=== PATIENT | male | born 1995 | race Caucasian/White ===

== ENCOUNTER 2018-11-11 10:49 | Emergency (ER) | payer BC ==
--- NOTE | 2018-11-11 11:22 | EDM.PDOC ---
ED HPI GENERAL MEDICAL PROBLEM - General Chief Complaint: Lower Extremity Injury/Pain Stated Complaint: ER VISIT Time Seen by Provider: 11/11/18 11:00 Source of Information: Reports: Patient, Family History Limitations: Reports: No Limitations - History of Present Illness INITIAL COMMENTS - FREE TEXT/NARRATIVE: Patient comes into the emergency department with complaint of left ankle discomfort. Patient sustained a fall on the ice approximately 4 days ago. Patient states he was walking slipped and fell onto the left ankle denies hitting any other extremity or body part. He does have weakness noted on the left side for he had a stroke prior to . He states it is normally weaker and sometimes can be challenging on uneven or slippery areas. He states he has discomfort sharpshooting pain when he is walking on it. He says it hurts to walk but he can if he has a severe limp. Patient states it has severely bruised over the course of the last 2 days and the swelling has continued to increase. He has taken some Advil at home to help with the pain but has not taken any today. Denies any numbness or tingling sensation of the lower extremity denies any loss of movement. States his range of motion is limited due to the discomfort. Onset: Sudden Improves with: Reports: Cold Therapy, Rest Worsens with: Reports: Movement Context: Reports: Activity Associated Symptoms: Reports: No Other Symptoms Treatments PROVIDER RELATIONS ADVOCATE: Reports: Acetaminophen Left Ankle Pain Score (Numeric/FACES): 5 - Related Data Allergies Allergy/AdvReac Type Severity Reaction Status Date / Time No Known Allergies Allergy Verified 11/11/18 11:03 Home Meds: Home Meds Multivitamin [Multivitamins] 1 each PO DAILY 11/11/18 [History] OXcarbazepine [Trileptal] 750 mg PO BID 11/11/18 [History] Past Medical History Neurological History: Reports: CVA Social & Family History - Tobacco Use Smoking Status *Q: Never Smoker Review of Systems - Review of Systems Review Of Systems: See Below Constitutional: Reports: No Symptoms Eyes: Reports: No Symptoms Ears: Reports: No Symptoms Nose: Reports: No Symptoms Mouth/Throat: Reports: No Symptoms Respiratory: Reports: No Symptoms Cardiovascular: Reports: No Symptoms GI/Abdominal: Reports: No Symptoms Musculoskeletal: Reports: Leg Pain, Foot Pain Skin: Reports: No Symptoms Neurological: Reports: No Symptoms, Weakness (left side r/t stroke prior to ) Psychiatric: Reports: No Symptoms ED EXAM, GENERAL - Physical Exam Exam: See Below Exam Limited By: No Limitations General Appearance: Alert, WD/WN, No Apparent Distress Peripheral Pulses: 3+: Posterior Tibial (L), Posterior Tibial (R), Dorsalis Pedis (L), Dorsalis Pedis (R) Back Exam: Normal Inspection, Full Range of Motion Extremities: Limited Range of Motion (left ankle. tenderness noted, ecchymosis noted around the entire ankle and anterior and posterior foot, decreased range of motion on lateral movements) Neurological: Alert, Oriented Psychiatric: Normal Mood Skin Exam: Warm, Dry, Intact, Normal Color Course - Vital Signs Last Recorded V/S: Last Vital Signs Temp 37.4 C 11/11/18 11:04 Pulse 95 11/11/18 11:04 Resp 16 11/11/18 11:04 BP 137/84 11/11/18 11:04 Pulse Ox 99 11/11/18 11:04 - Orders/Labs/Meds Orders: Active Orders 24 hr Category Date Time Status Brace [Immobilizer] [RC] ASDIRECTED Care 11/11/18 12:06 Ordered Departure - Departure Time of Disposition: 12:15 Disposition: Home, Self-Care 01 Clinical Impression: Bimalleolar avulsion fracture Qualifiers: Encounter type: initial encounter Fracture type: closed Laterality: left Qualified Code(s): S82.842A - Displaced bimalleolar fracture of left lower leg, initial encounter for closed fracture - Discharge Information *PRESCRIPTION DRUG MONITORING PROGRAM REVIEWED*: Not Applicable *COPY OF PRESCRIPTION DRUG MONITORING REPORT IN PATIENT JODIE: Not Applicable Instructions: Ankle Fracture, [id number], Walking Boot, Adult Referrals: PCP,Not In Area [Primary Care Provider] - Forms: ED Department Discharge Additional Instructions: 1. rest 2. Elevated foot as much as possible 3. Ice the extremity at least 3 times a day for 20 mins 4. Can take ibuprofen or Tylenol for any pain and discomfort 5. Follow up with orthopedic for further management 6. Keep off of foot as much as possible until evaluated further 7. Call with any questions or concerns. - My Orders Last 24 Hours: My Active Orders 11/11/18 12:06 Brace [Immobilizer] [RC] ASDIRECTED - Assessment/Plan Last 24 Hours: My Active Orders 11/11/18 12:06 Brace [Immobilizer] [RC] ASDIRECTED Assessment:: 1. left ankle injury-bimalleolar avulsion injury Plan: 1. Ice applied 2. Offered pain medication however pt declined 3. Xray completed in ER. Results reviewed with the pt and family 4. Splinting was completed with camboot and crutches 5. Follow up instructions provided 6. Education regarding diet, activity, rest, ice, and over the counter medications provided. 7. All questions and concerns answered prior to discharge
--- NOTE | 2018-11-11 11:57 | CR ---
[id number] RAD/RAD Ankle Left 3V Min EXAM: RAD Ankle Left 3V Min CLINICAL DATA: TRAUMA COMPARISON: NO PREVIOUS SIMILAR EXAM IS AVAILABLE. FINDINGS: There appear to be bilateral acute avulsion injuries of the medial and lateral malleoli. The mortise is intact.. IMPRESSION: BIMALLEOLAR AVULSION INJURIES. Navi Diaz MD 11/11/18 [id number] Thank you for allowing us to participate in the care of your patient.
== END 2018-11-11 12:30 | disposition home or self-care (01) ==
LOC: VM.ED 10:49
DX: S82.842A Displaced bimalleolar fracture of left lower leg, initial encounter for closed fracture (principal); W00.0XXA Fall on same level due to ice and snow, initial encounter
CPT/HCPCS: 73610-LT; 99283